=== PATIENT | female | born 1950 | race Asian ===

== ENCOUNTER 2021-05-27 16:37 | Inpatient (IN) | payer OTHER, SELFPAY ==
[~2021-05-27] VITALS: Ht 160 cm; Wt 54.4 kg
--- NOTE | 2021-05-27 16:40 | NUR ---
Placed in room 3 . Placed on soil field technician, blood pressure machine and pulse oximeter. To gown for exam. Side rails up. Report given to DARRYL Pena.
[2021-05-27 16:43] VITALS: BP_SYST 160
[2021-05-27] MEDS ORDERED: MORPHINE 4 MG INJ. 4 MG/ML VIAL IVP ONE (16:54)
[2021-05-27] MEDS ORDERED: NITROGLYCERIN 1 INCH (GM) OINT. TP ONE (16:54)
--- NOTE | 2021-05-27 17:52 | NUR ---
[facility] FREQUENCY
--- NOTE | 2021-05-27 18:00 | NUR ---
PT STATES NO COMPLAINTS
[2021-05-27 18:05] LABS: BASOPHILS % (AUTO) 0.7 % (0.0-2.0); EOSINOPHILS # (AUTO) 0.2 K/uL (0.0-0.4); EOSINOPHILS % (AUTO) 4.2 % (0.0-4.0); HEMATOCRIT 36.7 % (36-48); LYMPHOCYTES # (AUTO) 2.4 K/uL (1.0-5.5); LYMPHOCYTES % (AUTO) 47.8 % (20.5-51.5); MEAN CORPUSCULAR HEMOGLOBIN 31 pg (27-31); MEAN CORPUSCULAR HGB CONC 33 % (32-36); MEAN CORPUSCULAR VOLUME 95 fL (79.0-98.0); MONOCYTES # (AUTO) 0.5 K/uL (0.0-1.0); MONOCYTES % (AUTO) 9.2 % (1.7-9.3); NEUTROPHILS # (AUTO) 1.9 K/uL (1.8-7.7); NEUTROPHILS % (AUTO) 38.1 % (40.0-70.0); PLATELET COUNT (AUTO) 221 K/uL (130-430); RED BLOOD CELL COUNT(AUTO) 3.89 MIL/uL (4.2-6.2); WHITE BLOOD COUNT (AUTO) 4.9 K/uL (4.8-10.8)
--- NOTE | 2021-05-27 18:32 | NUR ---
VSS PT STATES NO COMPLAINTS
--- NOTE | 2021-05-27 18:43 | NUR ---
AMBULATED WITHOUT COMPLAINTS WITH STEADY GAIT TO BR
[2021-05-27 18:47] LABS: TRIGLYCERIDES 147 mg/dL (30-150)
[2021-05-27 19:00] LABS: CHOLESTEROL 214 mg/dL (<200); HDL CHOLESTEROL 92 mg/dL (>55); LDL CHOLESTEROL 89 mg/dL (<100)
--- NOTE | 2021-05-27 19:00 | NUR ---
REPORT TO NIKKIE
[2021-05-27 19:04] LABS: ANION GAP 6 (5-15)
[2021-05-27 19:06] LABS: CALCIUM 8.6 mg/dL (8.4-11.0); CHLORIDE 104 mmol/L (98-107); GLUCOSE 100 mg/dL (70-99); SODIUM SERUM 136 mmol/L (136-145)
[2021-05-27 19:07] LABS: ALANINE AMINOTRANSFERASE 45 U/L (12-78); ALBUMIN 3.7 g/dL (3.4-4.8); ASPARTATE AMINOTRANSFERASE 33 U/L (10-37); CREATININE 0.82 mg/dL (0.55-1.30); INR 0.8 (0.8-1.2); PROTHROMBIN TIME 8.9 SECS (9.5-12.5); TOTAL BILIRUBIN 0.1 mg/dL (0.0-1.0); UREA NITROGEN, BLOOD 10 mg/dL (8-21)
--- NOTE | 2021-05-27 19:32 | NUR ---
patient resting in bed no acute distress noted speaking with daughter. No voiced complaints at this time.
--- NOTE | 2021-05-27 20:49 | NUR ---
patient sitting up in bed eating dinner tray with daughter at bedside.
--- NOTE | 2021-05-27 20:49 | NUR ---
patient moved to hospital bed
[2021-05-27] MEDS ORDERED: [UNRECOGNIZED DRUG - OTHER] PO (21:53)
[2021-05-27] MEDS ORDERED: NEBI5TAB3 PO (21:53)
[2021-05-27] MEDS ORDERED: ESOM40CA PO (21:53)
[2021-05-27] MEDS ORDERED: ROSU10TA29 PO (21:53)
[2021-05-27] MEDS ORDERED: CALCIUM (21:53)
[2021-05-27] MEDS ORDERED: [UNRECOGNIZED DRUG - OTHER] PO (21:53)
[2021-05-27] MEDS ORDERED: LACT1CAP69 PO (21:53)
--- NOTE | 2021-05-27 21:53 | NUR ---
Medication reconciliation completed with information provided by FAMILY. Any prior medication reconciliation on file was reviewed and corrected.
--- NOTE | 2021-05-27 21:54 | NUR ---
PATIENT STATES SHE IS FULL CODE.
[2021-05-27] MEDS ORDERED: ACETAMINOPHEN 325 MG TABLET PO PRN (23:15)
[2021-05-27] MEDS ORDERED: HYDROcodone/ACETAMIN 10-325 MG TAB PO PRN (23:15)
[2021-05-27] MEDS ORDERED: HYDROcodone/ACETAMIN 5-325 MG TAB (NORCO/ VICODIN) PO PRN (23:15)
[2021-05-27] MEDS ORDERED: LORazepam 2 MG/ML VIAL IVP PRN (23:15)
[2021-05-27] MEDS ORDERED: NALOXONE HCL 0.4 MG/ML AMP (NARCAN) IVP PRN ×2 (23:15)
[2021-05-27] MEDS ORDERED: ONDANSETRON HCL 4 MG/2 ML VIAL IVP PRN (23:15)
--- NOTE | 2021-05-28 00:21 | NUR ---
PATIENT ASLEEP IN BED. CHEST RISE AND FALL NOTED. NO ACUTE DISTRESS NOTED
--- NOTE | 2021-05-28 03:05 | NUR ---
REPORT GIVEN TO DARRYL CAMERON
--- NOTE | 2021-05-28 03:05 | NUR ---
Patient resting quietly. No acute distress noted. Vital signs within normal range.
--- NOTE | 2021-05-28 04:38 | NUR ---
Patient resting quietly. No acute distress noted. VSS.
--- NOTE | 2021-05-28 05:20 | NUR ---
REPORT GIVEN TO LEONEL ANDREWS
[2021-05-28] MEDS ORDERED: NORMAL SALINE 5 ML DISP.SYRIN IVF SCH (06:00)
[2021-05-28] MEDS: NORMAL SALINE 5 ML DISP.SYRIN IVF SCH ×2 (06:02→12:02)
--- NOTE | 2021-05-28 06:05 | NUR ---
ASSUMED ALL CARE OF PT. PT RESTING. FAMILY AT BEDSIDE. VSS. RESPIRATIONS EVEN AND UNLABORED. NO ACUTE DISTRESS NOTED. NO CONCERNS AT THIS TIME.
--- NOTE | 2021-05-28 07:09 | NUR ---
GAVE REPORT TO DARRYL BELTRE TO ASSUME ALL CARE OF PATIENT.
[2021-05-28 07:16] LABS: EOSINOPHILS # (AUTO) 0.2 K/uL (0.0-0.4); HEMATOCRIT 33.7 % (36-48); HEMOGLOBIN 11.3 g/dL (12.0-16.0); LYMPHOCYTES # (AUTO) 2.1 K/uL (1.0-5.5); LYMPHOCYTES % (AUTO) 49.5 % (20.5-51.5); MEAN CORPUSCULAR HEMOGLOBIN 32 pg (27-31); MEAN CORPUSCULAR HGB CONC 33 % (32-36); MEAN CORPUSCULAR VOLUME 94 fL (79.0-98.0); MONOCYTES # (AUTO) 0.5 K/uL (0.0-1.0); MONOCYTES % (AUTO) 11.1 % (1.7-9.3); NEUTROPHILS # (AUTO) 1.3 K/uL (1.8-7.7); NEUTROPHILS % (AUTO) 32.4 % (40.0-70.0); PLATELET COUNT (AUTO) 214 K/uL (130-430); RED BLOOD CELL COUNT(AUTO) 3.58 MIL/uL (4.2-6.2); RED CELL DISTRIBUTION WIDTH 14.6 % (9.0-15.0); WHITE BLOOD COUNT (AUTO) 4.2 K/uL (4.8-10.8)
[2021-05-28 07:47] LABS: ANION GAP 8 (5-15); CHLORIDE 107 mmol/L (98-107); CREATININE 0.82 mg/dL (0.55-1.30); GLUCOSE 97 mg/dL (70-99); PHOSPHORUS 3.7 mg/dL (2.7-4.5); POTASSIUM 4.1 mmol/L (3.5-5.1); SODIUM SERUM 140 mmol/L (136-145); THYROID STIMULATING HORMONE 1.55 uIu/mL (0.36-3.74); UREA NITROGEN, BLOOD 9 mg/dL (8-21)
[2021-05-28] MEDS ORDERED: METOPROLOL TARTRATE 25 MG TABLET PO SCH (09:00)
[2021-05-28] MEDS ORDERED: LACTOBACILLUS RHAMNOSUS GG 1 CAP CAPSULE PO SCH (09:00)
[2021-05-28] MEDS ORDERED: [UNRECOGNIZED DRUG - OTHER] PO SCH (09:00)
--- NOTE | 2021-05-28 10:21 | NUR ---
DR GAVIRIA AT BEDSIDE
[2021-05-28] MEDS ORDERED: LISINOPRIL 10 MG TABLET (PRINIVIL) PO ONE (10:45)
[2021-05-28] MEDS ORDERED: ASPIRIN 81 MG TAB.CHEW PO ONE (10:45)
--- NOTE | 2021-05-28 10:47 | NUR ---
Patient will be admitted to care of [facility]. Admitted to TELE unit. Will go to room 100. Belongings list completed. Complete and up to date summary report printed. SBAR report to be given at bedside with opportunity for questions.
--- NOTE | 2021-05-28 10:57 | NUR ---
ADMISSION NOTES RECEIVED PT FROM [facility]. WITH DIAGNOSIS OF CHESTPAIN UNDER THE CARE OF DR KRAMER. PT EDUCATED ON THE USE CALL LIGHT, TV AND BED CONTROLS. INSTRUCTED PT TO CALL FOR ASSIST AND PAIN. WILL CONT TO MONITOR.
[2021-05-28 10:59] VITALS: BP_SYST 159
[2021-05-28] MEDS ORDERED: CLOPIDOGREL BISULFATE 75 MG TABLET PO ONE (11:15)
[2021-05-28] MEDS ORDERED: HEPARIN 25,000 UNITS/D5W 250ML 250 ML IV PRN (11:15)
--- NOTE | 2021-05-28 11:27 | NUR ---
LEFT A MESSAGE WITH CLARIBEL SOTO RE: ARRANGE TRANSFER FOR HEART CATH, STEMI CASE PER DR GAVIRIA INSTRUCTION.
[2021-05-28 11:29] VITALS: BP_SYST 164
--- NOTE | 2021-05-28 11:45 | NUR ---
PT KEPT NPO FOR POSSIBLE CARDIAC CATH.
[2021-05-28] MEDS ORDERED: HEPARIN SODIUM,PORCINE 5,000 UNITS/ML VIAL IVP ONE (13:00)
[2021-05-28 13:39] VITALS: BP_SYST 164
--- NOTE | 2021-05-28 14:11 | NUR ---
PT DISCHARGED TRANSFER TO [facility] FOR ANGIOGRAM PER DR Quinton KRAMER. PT ON STABLE CONDITION NO C/O OF CHEST PAIN. NO SOB. REPORT GIVEN TO AMBULANCE AND RN MARÍA OF [facility]. ENDORSED TO MARÍA THAT PT HAS AN ORDER FOR NS AT 100 CC / HR.
[2021-05-28] MEDS ORDERED: NACL 0.9% 1,000 ML IV SCH (14:15)
--- NOTE | 2021-05-28 14:47 | NUR ---
DR Quinton KRAMER CALLED, INFORMED MD OF THE PT, PTT INR AND THAT PT ALREADY LEFT FOR [facility].
--- NOTE | 2021-05-28 16:13 | NUR ---
CM: dispo code 02. to [facility] for heart cath.
[2021-05-28] MEDS ORDERED: PANTOPRAZOLE SODIUM 40 MG TAB PO SCH (21:00)
[2021-05-28] MEDS ORDERED: ATORVASTATIN 20 MG TABLET PO SCH (21:00)
[2021-05-28] MEDS ORDERED: [UNRECOGNIZED DRUG - OTHER] PO SCH (21:00)
[2021-05-29] MEDS ORDERED: LISINOPRIL 10 MG TABLET (PRINIVIL) PO SCH (09:00)
[2021-05-29] MEDS ORDERED: ASPIRIN 81 MG TAB.CHEW PO SCH (09:00)
== END 2021-05-28 14:11 | disposition short-term general hospital (02) | DRG 282 ==
LOC: SED 16:37 → STU 19:06 → EDBD 19:06 → STU 05-28 08:12
PROVIDERS: ADMIT Preventive Medicine Preventive Medicine/Occupational Environmental Medicine; ATTEND Preventive Medicine Preventive Medicine/Occupational Environmental Medicine
DX: I21.19 ST elevation (STEMI) myocardial infarction involving other coronary artery of inferior wall (principal); E78.5 Hyperlipidemia, unspecified; I10 Essential (primary) hypertension; K21.9 Gastro-esophageal reflux disease without esophagitis; R73.9 Hyperglycemia, unspecified; Z20.822 Contact with and (suspected) exposure to COVID-19; Z98.891 History of uterine scar from previous surgery
CPT/HCPCS: 36415; 71045; 80048; 80053; 80061; 83735; 83880; 84100; 84443; 84484; 85025; 85379; 85610-TC; 85730-TC; 93005; 93306; G0378; J1644; J2270